=== PATIENT | female | born 1990 | race Caucasian/White ===

== ENCOUNTER 2018-12-10 | Emergency (ER) | payer MEDICAID ==
[~2018-12-10] VITALS: Ht 154.9 cm; Wt 63.0 kg
[~2018-12-10] MED LIST: SUCR1ORA2 PO
[2018-12-10 00:04] VITALS: BP 124/84
--- NOTE | 2018-12-10 02:07 | NUR ---
Call placed to number on file after attempting to Rm 3 times. Left message expressing concern for Pt.'s wellbeing and encouraged him to return for Evaluation. Dr. Nunes informed
== END 2018-12-10 02:09 | disposition left against medical advice (07) ==
LOC: ER 00:01
DX: R05 Cough (principal); J00 Acute nasopharyngitis [common cold]; R09.89 Other specified symptoms and signs involving the circulatory and respiratory systems; Z53.21 Procedure and treatment not carried out due to patient leaving prior to being seen by health care provider; Z79.899 Other long term (current) drug therapy

== ENCOUNTER 2019-08-28 17:34 | Emergency (ER) | payer MEDICAID ==
[~2019-08-28] VITALS: Ht 154.9 cm; Wt 50.0 kg
[2019-08-28 17:46] VITALS: BP 130/90
[2019-08-28] MEDS ORDERED: AMOX500C2 PO (17:58)
[2019-08-28] MEDS ORDERED: IBUP-1984 PO (17:58)
[2019-08-28] MEDS ORDERED: ACET-812 PO (17:58)
== END 2019-08-28 18:14 | disposition home or self-care (01) ==
LOC: ER 17:34
DX: K08.89 Other specified disorders of teeth and supporting structures (principal); F12.90 Cannabis use, unspecified, uncomplicated; Z90.89 Acquired absence of other organs
CPT/HCPCS: 99283

== ENCOUNTER 2020-03-07 06:07 | Emergency (ER) | payer MEDICAID ==
[~2020-03-07] VITALS: Ht 154.9 cm; Wt 58.2 kg
--- NOTE | 2020-03-07 06:21 | NUR ---
PAIN IN RIGHT CERVICAL LYMPH GLANDS AND EXCORIATED RASH TO RIGHT EAR LOBE X 3 DAYS. DENIES FEVER. TENDERNESS NOTED.
[2020-03-07] MEDS ORDERED: NEOM1OIN8 TOP (06:29)
[2020-03-07] MEDS ORDERED: ACYC-202 PO (06:29)
[2020-03-07] MEDS ORDERED: AMOX500C2 PO (06:29)
[2020-03-07 06:39] VITALS: BP 129/87
== END 2020-03-07 06:42 | disposition home or self-care (01) ==
LOC: ER 06:08
DX: L01.09 Other impetigo (principal); H62.41 Otitis externa in other diseases classified elsewhere, right ear; R51.9 Headache, unspecified; R21 Rash and other nonspecific skin eruption; F12.90 Cannabis use, unspecified, uncomplicated; Z90.89 Acquired absence of other organs; Z72.89 Other problems related to lifestyle; Z79.2 Long term (current) use of antibiotics; Z79.899 Other long term (current) drug therapy
CPT/HCPCS: 99283

== ENCOUNTER 2021-02-24 17:54 | Emergency (ER) | payer MEDICAID ==
[~2021-02-24] VITALS: Ht 154.9 cm; Wt 52.3 kg
[~2021-02-24 17:54] MED LIST changes: +NEOM1OIN8 TOP
[2021-02-24 18:05] VITALS: BP 156/97
--- NOTE | 2021-02-24 18:09 | NUR ---
PT HAS NOT BEEN VACCINATED FOR COVID.
[2021-02-24 19:43] LABS: CLARITY,URINE CLEAR (Clear); COLOR,URINE STRAW (Yellow); UA COLLECTION TYPE NON-SPECIFIED
[2021-02-24 19:45] LABS: GLUCOSE, URINE NEGATIVE (Neg); KETONES,URINE NEGATIVE (Neg); LEUKOCYTE ESTERASE ,URINE NEGATIVE (Neg); NITRITES, URINE NEGATIVE (Neg); OCCULT BLOOD,URINE NEGATIVE (Neg); PROTEIN,URINE NEGATIVE (Neg); UROBILINOGEN,URINE 0.2 E.U/dL (0.2-1.0)
== END 2021-02-24 20:04 | disposition home or self-care (01) ==
LOC: ER 17:55
DX: R05.9 Cough, unspecified (principal); Z20.822 Contact with and (suspected) exposure to COVID-19; R11.2 Nausea with vomiting, unspecified; R19.7 Diarrhea, unspecified; J34.89 Other specified disorders of nose and nasal sinuses; R30.9 Painful micturition, unspecified; F12.90 Cannabis use, unspecified, uncomplicated; Z90.89 Acquired absence of other organs; Z72.89 Other problems related to lifestyle; Z79.899 Other long term (current) drug therapy
CPT/HCPCS: 36415; 81003; 99283; U0003; U0005

== ENCOUNTER 2023-01-10 00:03 | Inpatient (IN) | payer MEDICAID ==
[~2023-01-10] VITALS: Ht 154.9 cm; Wt 50.0 kg
[2023-01-10 00:28] LABS: BASOPHILS % (AUTO) 0.3 % (0-1); EOSINOPHILS % (AUTO) 0 % (0-6); HEMATOCRIT 32.6 % (35.0-45.0); HEMOGLOBIN 11.4 g/dl (12.0-16.0); LYMPHOCYTES % (AUTO) 16.8 % (21-51); MEAN CORPUSCULAR HEMOGLOBIN 33.9 PG (27.0-31.0); MEAN PLATELET VOLUME 8.2 FL (7.4-10.4); MONOCYTES % (AUTO) 8.1 % (2-12); NEUTROPHILS # (AUTO) 8.8 X10'3 (1.8-7.7); NEUTROPHILS % (AUTO) 74.8 % (42-75); PLATELET COUNT 263 X10'3 (140-440); RED BLOOD COUNT 3.37 X10'6 (4.20-5.60); RED CELL DISTRIBUTION WIDTH 13.1 % (11.5-14.5); WHITE BLOOD COUNT 11.7 X10'3 (4.5-11.0)
[2023-01-10 00:49] LABS: ALANINE AMINOTRANSFERASE 51 U/L (12-78); ALBUMIN 3.7 G/DL (3.4-5.0); ALKALINE PHOSPHATASE 63 IU/L (46-116); ANION GAP 19 (8-16); ASPARTATE AMINO TRANSFERASE 50 U/L (10-37); BILIRUBIN,TOTAL 0.7 MG/DL (0.1-1.0); BLOOD UREA NITROGEN 6 MG/DL (7-18); BUN/CREATININE RATIO 5.2 (10.0-20.0); CALCIUM 8.4 MG/DL (8.5-10.1); CHLORIDE 97 MMOL/L (99-107); CREATININE 1.15 MG/DL (0.40-0.90); GLUCOSE 112 MG/DL (70-104); MAGNESIUM 1.1 MG/DL (1.5-2.4); PRO BRAIN NATRIURETIC PEPTIDE 49 PG/ML (0-125); SODIUM 136 MMOL/L (135-145); TOTAL CARBON DIOXIDE 20.1 MMOL/L (24-32); TOTAL PROTEIN 7.4 G/DL (6.4-8.2); eCRCL 53 ML/MIN; eGFR 54 ML/MIN
[2023-01-10 01:01] LABS: POTASSIUM 2.4 MMOL/L (3.5-5.1)
[2023-01-10] MEDS ORDERED: ringers solution, lacted 1,000 ML IV ONE (02:05)
[2023-01-10] MEDS ORDERED: magnesium 2GM in 50ml NS 50 ML IV ONE (02:05)
[2023-01-10] MEDS ORDERED: potassium Cl 40MEQ/1/2NS 520ml 520 ML IV ONE (02:05)
[2023-01-10] MEDS ORDERED: POTASSIUM BICARB 20meq eff tab 20 MEQ TABLET.EFF PO ONE (02:05)
[2023-01-10 02:45] LABS: C-REACTIVE PROTEIN 0.44 MG/DL (0.0-0.5); LIPASE 92 U/L (73-393)
[2023-01-10 02:53] LABS: ETHANOL < 10 MG/DL (<10)
[2023-01-10] MEDS ORDERED: proCHLORperazine 10 MG/2 ml inj IV ONE (02:55)
[2023-01-10 03:20] LABS: D-DIMER 0.32 MG/L FEU (0-0.50)
[2023-01-10] MEDS ORDERED: potassium Cl 20 mEq SR tablet PO PRN (04:05)
[2023-01-10] MEDS ORDERED: magnesium 2GM in 50ml NS 50 ML IV PRN (04:05)
[2023-01-10] MEDS ORDERED: magnesium 4gm in 100ml NS 100 ML IV PRN (04:05)
[2023-01-10] MEDS: normal saline 1000ml 1,000 ML IV SCH ×2 (04:05→14:56)
[2023-01-10] MEDS ORDERED: magnesium Cl slow-release 64mg tablet PO PRN (04:05)
[2023-01-10] MEDS ORDERED: potassium Cl 40MEQ/1/2NS 520ml 520 ML IV PRN (04:05)
[2023-01-10] MEDS ORDERED: ondansetron/PF 4mg/2ml inj IV PRN (04:05)
[2023-01-10 07:26] LABS: POTASSIUM 3.4 MMOL/L (3.5-5.1)
[2023-01-10] MEDS: K and/or MAG REPLACEMENT MC SCH ×2 (08:00→20:00)
[2023-01-10] MEDS ORDERED: pantoprazole 40mg IV 80 MG in normal saline 100ml IV soln 100 ML IV SCH (11:25)
[2023-01-10] MEDS: pantoprazole 40MG/NS 100ML BAG 100 ML IV SCH ×2 (12:07→21:14)
[2023-01-10 12:09] LABS: BILIRUBIN,URINE NEGATIVE (Neg); CLARITY,URINE SLIGHTLY CLOUDY (Clear); COLOR,URINE YELLOW (Yellow); GLUCOSE, URINE NEGATIVE (Neg); KETONES,URINE NEGATIVE (Neg); LEUKOCYTE ESTERASE ,URINE MODERATE (Neg); NITRITES, URINE NEGATIVE (Neg); OCCULT BLOOD,URINE MODERATE (Neg); PROTEIN,URINE NEGATIVE (Neg); UROBILINOGEN,URINE 0.2 E.U/dL (0.2-1.0)
[2023-01-10 12:24] LABS: UA COLLECTION TYPE CLN CATCH MIDSTREAM
[2023-01-10 12:28] LABS: HCG SERUM QL NEGATIVE
[2023-01-10 12:29] LABS: URINE AMPHETAMINE SCREEN NEGATIVE (Neg); URINE BARBITUATE SCREEN NEGATIVE (Neg); URINE BENZODIAZEPINES SCREEN NEGATIVE (Neg); URINE CANNABINOID SCREEN POSITIVE (Neg); URINE COCAINE SCREEN NEGATIVE (Neg); URINE METHADONE SCREEN NEGATIVE (Neg); URINE OPIATE SCREEN NEGATIVE (Neg); URINE PHENCYCLIDINE SCREEN NEGATIVE (Neg)
[2023-01-10 12:32] LABS: BACTERIA,URINE 1+ /HPF (Neg); MUCUS STRANDS NONE SEEN /LPF (Neg); RBC,URINE 0-2 /HPF (0-2); SQUAMOUS EPITHELIAL CELL,UR MANY /LPF (FEW); WBC,URINE 20-30 /HPF (0-4)
[2023-01-10] MEDS ORDERED: NORG1TAB72 PO (12:49)
[2023-01-10] MEDS ORDERED: IBUP-1984 PO (12:50)
[2023-01-10] MEDS ORDERED: DIPH25CA83 PO (12:51)
--- NOTE | 2023-01-10 13:26 | NUR ---
ED BED 11--POTASSIUM 2.9 [id number]. PAGE SENT TO DR FLEMING
[2023-01-10] MEDS: potassium Cl 20 mEq SR tablet PO PRN ×2 (14:30→18:38)
--- NOTE | 2023-01-10 15:28 | NUR ---
WAS ABLE TO GET EVS TO BRING A HOSPITAL BED FOR PT COMFORT
--- NOTE | 2023-01-10 21:58 | NUR ---
report given to floor nurse pt tx to room 3020a by tech
[2023-01-10 22:13] LABS: MAGNESIUM 2.4 MG/DL (1.5-2.4); POTASSIUM 3.8 MMOL/L (3.5-5.1)
[2023-01-10 22:15] VITALS: BP 113/74; PULSE 88; RESP 16; TEMP 98.2; O2SAT 99
[2023-01-10] MEDS ORDERED: diphenhydrAMINE 25mg capsule PO ONE (22:35)
[2023-01-10] MEDS ORDERED: ibuprofen tablet 400 MG TABLET PO ONE (22:35)
[2023-01-11] MEDS: normal saline 1000ml 1,000 ML IV SCH ×3 (01:00→11:38)
[2023-01-11 03:00] VITALS: BP 134/94; PULSE 92; RESP 16; TEMP 97.8; O2SAT 99
[2023-01-11] MEDS ORDERED: diphenhydrAMINE 25mg capsule PO ONE (04:45)
[2023-01-11 06:00] VITALS: BP 133/87; PULSE 109; RESP 19; TEMP 97.8; O2SAT 100
--- NOTE | 2023-01-11 06:10 | NUR ---
Patient in room PCU 3020. I have received report from Daniela THORNE and had the opportunity to ask questions and assume patient care. Pt sleeping, No distress, Call light in reach. Addendum: 01/11/23 at 0641 by Kimberly Majano RN Amended: Links added.
[2023-01-11 06:19] LABS: BASOPHILS % (AUTO) 0.6 % (0-1); EOSINOPHILS # (AUTO) 0.1 X10'3 (0-0.9); EOSINOPHILS % (AUTO) 1.5 % (0-6); HEMATOCRIT 29.8 % (35.0-45.0); HEMOGLOBIN 10.3 g/dl (12.0-16.0); LYMPHOCYTES # (AUTO) 1.9 X10'3 (1.1-4.8); LYMPHOCYTES % (AUTO) 34.7 % (21-51); MEAN CORPUSCULAR HGB CONC 34.5 g/dL (33.0-36.5); MEAN CORPUSCULAR VOLUME 98.7 FL (78-98); MEAN PLATELET VOLUME 8.8 FL (7.4-10.4); MONOCYTES # (AUTO) 0.5 X10'3 (0-0.9); MONOCYTES % (AUTO) 9.4 % (2-12); NEUTROPHILS # (AUTO) 2.9 X10'3 (1.8-7.7); NEUTROPHILS % (AUTO) 53.8 % (42-75); PLATELET COUNT 183 X10'3 (140-440); RED BLOOD COUNT 3.02 X10'6 (4.20-5.60); RED CELL DISTRIBUTION WIDTH 13.1 % (11.5-14.5); WHITE BLOOD COUNT 5.5 X10'3 (4.5-11.0)
[2023-01-11 06:37] LABS: ANION GAP 9 (8-16); BLOOD UREA NITROGEN 2 MG/DL (7-18); BUN/CREATININE RATIO 3.8 (10.0-20.0); CALCIUM 7.9 MG/DL (8.5-10.1); CHLORIDE 108 MMOL/L (99-107); CREATININE 0.52 MG/DL (0.40-0.90); GLUCOSE 95 MG/DL (70-104); POTASSIUM 3.9 MMOL/L (3.5-5.1); SODIUM 140 MMOL/L (135-145); TOTAL CARBON DIOXIDE 22.6 MMOL/L (24-32); eCRCL 116 ML/MIN; eGFR > 90 ML/MIN
[2023-01-11] MEDS ORDERED: CefTRIAXone/D5W-Rocephin 1gm 50 ML IV ONE (06:55)
[2023-01-11 07:35] VITALS: RESP 19; O2SAT 100
[2023-01-11] MEDS: K and/or MAG REPLACEMENT MC SCH (08:00)
[2023-01-11] MEDS ORDERED: CefTRIAXone/D5W-Rocephin 1gm 50 ML IV SCH (08:50)
[2023-01-11] MEDS: pantoprazole 40MG/NS 100ML BAG 100 ML IV SCH (08:52)
[2023-01-11] MEDS ORDERED: diphenhydrAMINE 25mg capsule PO PRN (09:50)
[2023-01-11 10:40] LABS: C DIFF ANTIGEN NEGATIVE (NEGATIVE); C DIFF SPECIMEN=DIARRHEA? ACCEPTABLE; C DIFFICILE TOXINS A&B NEGATIVE (Neg)
[2023-01-11 11:21] VITALS: BP 120/85; PULSE 91; RESP 20; TEMP 98.1; O2SAT 99
[2023-01-11] MEDS ORDERED: OMEP20CA15 PO (12:02)
[2023-01-11] MEDS ORDERED: LACT1CAP76 PO (12:02)
[2023-01-11] MEDS ORDERED: CEFD300C3 PO (12:02)
--- NOTE | 2023-01-11 14:35 | NUR ---
Pt D/C to home. All written and verbal orders for D/c given. All questions answered. Pt stated she had all belongings, home with mom. Addendum: 01/11/23 at 1436 by Kimberly Majano RN Amended: Links added.
[2023-01-11] MEDS ORDERED: pantoprazole 40mg Tablet.DR PO SCH (20:00)
== END 2023-01-11 15:30 | disposition home or self-care (01) | DRG 249 ==
LOC: ER 00:04 → ED HOLD 04:07 → PCU 3S 21:59
PROVIDERS: ADMIT Internal Medicine; ATTEND Family Medicine
DX: K52.9 Noninfective gastroenteritis and colitis, unspecified (principal); E83.42 Hypomagnesemia; E87.6 Hypokalemia; Z20.822 Contact with and (suspected) exposure to COVID-19; R94.31 Abnormal electrocardiogram [ECG] [EKG]; F12.90 Cannabis use, unspecified, uncomplicated; G89.29 Other chronic pain; R07.89 Other chest pain; Z74.01 Bed confinement status; Z88.8 Allergy status to other drugs, medicaments and biological substances; Z91.010 Allergy to peanuts; Z91.014 Allergy to mammalian meats; Z79.899 Other long term (current) drug therapy
CPT/HCPCS: 36415; 71046; 80048; 80053; 80305; 80320; 80329; 81001; 83605; 83690; 83735; 83880; 84132; 84145; 84484; 84703; 85025; 85379; 85651; 86140; 87045; 87046; 87081; 87324; 87449; 87811; 89055; 93005; 99285; C9113; G0378; J0696; J0780; J3475; J3480; J7030; J7120; Q0163

== ENCOUNTER 2024-03-13 11:09 | Emergency (ER) | payer MEDICAID ==
[~2024-03-13] VITALS: Ht 154.9 cm; Wt 47.2 kg
[~2024-03-13 11:09] MED LIST changes: +DIPH25CA83 PO; +IBUP-1984 PO; +LACT1CAP76 PO; -NEOM1OIN8 TOP; +NORG1TAB72 PO; +OMEP20CA15 PO; -SUCR1ORA2 PO
[2024-03-13 11:50] LABS: BASOPHILS # (AUTO) 0.2 X10'3 (0-0.2); BASOPHILS % (AUTO) 1.8 % (0-1); EOSINOPHILS # (AUTO) 0.5 X10'3 (0-0.9); EOSINOPHILS % (AUTO) 5.5 % (0-6); HEMATOCRIT 32.4 % (35.0-45.0); HEMOGLOBIN 10.5 g/dl (12.0-16.0); LYMPHOCYTES # (AUTO) 3.6 X10'3 (1.1-4.8); LYMPHOCYTES % (AUTO) 39.2 % (21-51); MEAN CORPUSCULAR HEMOGLOBIN 29.8 PG (27.0-31.0); MEAN CORPUSCULAR HGB CONC 32.4 g/dL (33.0-36.5); MEAN CORPUSCULAR VOLUME 91.8 FL (78-98); MEAN PLATELET VOLUME 6.7 FL (7.4-10.4); MONOCYTES # (AUTO) 0.5 X10'3 (0-0.9); MONOCYTES % (AUTO) 5.4 % (2-12); NEUTROPHILS # (AUTO) 4.4 X10'3 (1.8-7.7); NEUTROPHILS % (AUTO) 48.1 % (42-75); PLATELET COUNT 534 X10'3 (140-440); RED BLOOD COUNT 3.53 X10'6 (4.20-5.60); RED CELL DISTRIBUTION WIDTH 16.2 % (11.5-14.5); WHITE BLOOD COUNT 9.1 X10'3 (4.5-11.0)
[2024-03-13 12:13] LABS: ALANINE AMINOTRANSFERASE 62 U/L (12-78); ALBUMIN 4.1 G/DL (3.4-5.0); ALBUMIN/GLOBULIN RATIO 0.9 (1.1-1.5); ALKALINE PHOSPHATASE 112 IU/L (46-116); ANION GAP 16 (8-16); ASPARTATE AMINO TRANSFERASE 33 U/L (10-37); BILIRUBIN,TOTAL 0.2 MG/DL (0.1-1.0); BLOOD UREA NITROGEN 4 MG/DL (7-18); CALCIUM 8.6 MG/DL (8.5-10.1); CHLORIDE 106 MMOL/L (99-107); CREATININE 0.99 MG/DL (0.40-0.90); GLUCOSE 120 MG/DL (70-104); PRO BRAIN NATRIURETIC PEPTIDE < 30 PG/ML (0-125); SODIUM 142 MMOL/L (135-145); TOTAL CARBON DIOXIDE 19.8 MMOL/L (24-32); TOTAL PROTEIN 8.5 G/DL (6.4-8.2); eCRCL 60 ML/MIN; eGFR 64 ML/MIN
[2024-03-13 12:16] LABS: POTASSIUM 2.7 MMOL/L (3.5-5.1)
[2024-03-13] MEDS ORDERED: potassium Cl 40 mEq/0.45% sodium chloride IV soln 520ml IV ONE (12:25)
[2024-03-13] MEDS: normal saline 1000ML IV soln IVB ONE (12:43)
[2024-03-13] MEDS: LORazepam 2 mg/ml vial IV ONE (12:55)
[2024-03-13] MEDS: metoclopramide 5 mg/ml inj IV ONE (12:58)
[2024-03-13] MEDS: diphenhydrAMINE 50 mg/ml inj IV ONE (13:02)
[2024-03-13] MEDS: Potassium Cl 40 MEQ in sodium chloride 0.45% 500 ML IV ONE (13:34)
[2024-03-13 14:12] LABS: URINE AMPHETAMINE SCREEN NEGATIVE (Neg); URINE BARBITUATE SCREEN NEGATIVE (Neg); URINE BENZODIAZEPINES SCREEN NEGATIVE (Neg); URINE CANNABINOID SCREEN NEGATIVE (Neg); URINE COCAINE SCREEN NEGATIVE (Neg); URINE METHADONE SCREEN NEGATIVE (Neg); URINE OPIATE SCREEN NEGATIVE (Neg); URINE PHENCYCLIDINE SCREEN NEGATIVE (Neg)
[2024-03-13] MEDS ORDERED: POTA-207 PO (16:27)
[2024-03-13] MEDS ORDERED: ONDA-243 PO (16:27)
[2024-03-13 17:35] VITALS: BP 128/87; PULSE 108; RESP 18; TEMP 98.1; O2SAT 100
== END 2024-03-13 17:45 | disposition home or self-care (01) ==
LOC: ER 11:09
DX: E86.0 Dehydration (principal); E87.6 Hypokalemia; R10.84 Generalized abdominal pain; R11.2 Nausea with vomiting, unspecified; H53.2 Diplopia; F12.90 Cannabis use, unspecified, uncomplicated; Z72.89 Other problems related to lifestyle; Z91.010 Allergy to peanuts; Z91.014 Allergy to mammalian meats; Z91.018 Allergy to other foods; Z79.899 Other long term (current) drug therapy
CPT/HCPCS: 36415; 71045; 80053; 80305; 83880; 84484; 85025; 93005; 96361; 96365; 96366; 96375; 99285; J1200; J2060; J2765; J3480; J3490; J7030

== ENCOUNTER 2024-03-14 21:27 | Emergency (ER) | payer MEDICAID ==
[~2024-03-14] VITALS: Ht 165.1 cm; Wt 52.3 kg
[~2024-03-14 21:27] MED LIST changes: +ONDA-243 PO; +POTA-207 PO
[2024-03-14 21:30] VITALS: TEMP 98.4
[2024-03-14] MEDS: LORazepam 2 mg/ml vial IV ONE (21:58)
[2024-03-14 23:36] LABS: ALANINE AMINOTRANSFERASE 48 U/L (12-78); ALBUMIN 3.3 G/DL (3.4-5.0); ALBUMIN/GLOBULIN RATIO 0.8 (1.1-1.5); ALKALINE PHOSPHATASE 104 IU/L (46-116); ANION GAP 14 (8-16); ASPARTATE AMINO TRANSFERASE 43 U/L (10-37); BILIRUBIN,TOTAL 0.2 MG/DL (0.1-1.0); BLOOD UREA NITROGEN 3 MG/DL (7-18); BUN/CREATININE RATIO 3.5 (10.0-20.0); CALCIUM 7.7 MG/DL (8.5-10.1); CHLORIDE 111 MMOL/L (99-107); CREATININE 0.86 MG/DL (0.40-0.90); GLUCOSE 103 MG/DL (70-104); POTASSIUM 3.2 MMOL/L (3.5-5.1); SODIUM 146 MMOL/L (135-145); TOTAL CARBON DIOXIDE 20.7 MMOL/L (24-32); TOTAL PROTEIN 7.3 G/DL (6.4-8.2); eCRCL 76 ML/MIN; eGFR 76 ML/MIN
[2024-03-14 23:47] LABS: THYROID STIMULATING HORMONE 2.27 ulU/ml (0.34-4.50)
[2024-03-15 01:00] VITALS: BP 121/84; PULSE 71; RESP 17; O2SAT 98
== END 2024-03-15 01:59 | disposition home or self-care (01) ==
LOC: ER 21:27
DX: F41.9 Anxiety disorder, unspecified (principal); R00.2 Palpitations; F12.90 Cannabis use, unspecified, uncomplicated; Z72.89 Other problems related to lifestyle; Z91.014 Allergy to mammalian meats; Z91.018 Allergy to other foods; Z79.899 Other long term (current) drug therapy
CPT/HCPCS: 36415; 80053; 84439; 84443; 93005; 96374; 99284; J2060; 96372

== ENCOUNTER 2024-03-15 20:17 | Emergency (ER) | payer MEDICAID ==
[~2024-03-15] VITALS: Ht 154.9 cm; Wt 52.0 kg
[2024-03-15] MEDS ORDERED: haloperidol decanoate***LONG-ACTING*** 100mg/ml **IM only** inj. IM ONE (20:40)
[2024-03-15 20:41] LABS: BASOPHILS # (AUTO) 0.1 X10'3 (0-0.2); BASOPHILS % (AUTO) 0.7 % (0-1); EOSINOPHILS # (AUTO) 0.3 X10'3 (0-0.9); HEMATOCRIT 26.8 % (35.0-45.0); HEMOGLOBIN 8.8 g/dl (12.0-16.0); LYMPHOCYTES % (AUTO) 16.9 % (21-51); MEAN CORPUSCULAR HEMOGLOBIN 30.2 PG (27.0-31.0); MEAN CORPUSCULAR HGB CONC 32.6 g/dL (33.0-36.5); MEAN CORPUSCULAR VOLUME 92.6 FL (78-98); MEAN PLATELET VOLUME 6.9 FL (7.4-10.4); MONOCYTES # (AUTO) 0.4 X10'3 (0-0.9); MONOCYTES % (AUTO) 3.8 % (2-12); NEUTROPHILS # (AUTO) 8.7 X10'3 (1.8-7.7); NEUTROPHILS % (AUTO) 75.6 % (42-75); PLATELET COUNT 368 X10'3 (140-440); RED CELL DISTRIBUTION WIDTH 15.8 % (11.5-14.5); WHITE BLOOD COUNT 11.6 X10'3 (4.5-11.0)
[2024-03-15 20:50] LABS: ALBUMIN 3.7 G/DL (3.4-5.0); ANION GAP 14 (8-16); BLOOD UREA NITROGEN 3 MG/DL (7-18); BUN/CREATININE RATIO 2.8 (10.0-20.0); CALCIUM 7.6 MG/DL (8.5-10.1); CHLORIDE 107 MMOL/L (99-107); CREATININE 1.08 MG/DL (0.40-0.90); GLUCOSE 114 MG/DL (70-104); POTASSIUM 3.3 MMOL/L (3.5-5.1); SODIUM 143 MMOL/L (135-145); TOTAL CARBON DIOXIDE 21.7 MMOL/L (24-32); eCRCL 55 ML/MIN; eGFR 58 ML/MIN
[2024-03-15] MEDS: potassium Cl 20 mEq SR tablet PO ONE (21:30)
[2024-03-15] MEDS: benztropine 1 mg/ml 2ml ampule IM ONE (21:31)
[2024-03-15] MEDS: ondansetron 4mg rapidly disintigrating tab PO ONE (22:45)
[2024-03-15] MEDS: benztropine 1 mg/ml 2ml ampule IV ONE (22:46)
[2024-03-15] MEDS: normal saline 1000ml 1,000 ML IV ONE (22:46)
[2024-03-15] MEDS: haloperidol lactate 5mg/ml inj IM ONE (22:47)
[2024-03-15] MEDS: potassium Cl 20 mEq SR tablet PO STA (23:13)
[2024-03-15 23:36] VITALS: BP 118/76; PULSE 103; RESP 16; TEMP 98.1; O2SAT 99
== END 2024-03-15 23:38 | disposition home or self-care (01) ==
LOC: ER 20:18
DX: F41.9 Anxiety disorder, unspecified (principal); E86.0 Dehydration; E87.6 Hypokalemia; F12.90 Cannabis use, unspecified, uncomplicated; Z91.018 Allergy to other foods; Z91.09 Other allergy status, other than to drugs and biological substances; Z79.899 Other long term (current) drug therapy; Z90.89 Acquired absence of other organs
CPT/HCPCS: 80048; 85025; 96361; 96372; 96374; 99284; J0515; J1630; J7030